=== PATIENT | male | born 1975 | race Two or more races ===

== ENCOUNTER → 2019-03-10 | Outpatient (CLI) | payer OTHER ==
[2019-03-10 11:25] LABS: TRIGLYCERIDES 144 mg/dL (<150)
[2019-03-10 11:35] LABS: DIRECT LDL 131 mg/dL (<100)
== END ==
LOC: CCC 10:18
DX: E66.9 Obesity, unspecified (principal)
CPT/HCPCS: 36415; 80061; 83036